=== PATIENT | male | born 1940 | race Caucasian/White ===

== ENCOUNTER 2016-05-17 23:00 | Emergency (ER) | payer MEDICARE ==
[2016-05-17] MEDS ORDERED: MORPHINE 2 MG/ML SYRINGE IVP STA (23:57)
[2016-05-18] MEDS ORDERED: MORPHINE 2 MG/ML SYRINGE ONE (00:14)
[2016-05-18] MEDS ORDERED: IOPAMIDOL-300 100 ML VIAL IVP ONE (01:18)
[2016-05-18] MEDS ORDERED: metroNIDAZOLE 250 MG TABLET PO STA (02:18)
[2016-05-18] MEDS ORDERED: CIPROFLOXACIN 250 MG TABLET PO STA (02:18)
[2016-05-18] MEDS ORDERED: metroNIDAZOLE 250 MG TABLET PO ONE (02:29)
[2016-05-18] MEDS ORDERED: CIPROFLOXACIN 250 MG TABLET PO ONE (02:29)
== END 2016-05-18 02:34 | disposition home or self-care (01) ==
DX: K57.32 Diverticulitis of large intestine without perforation or abscess without bleeding (principal); I10 Essential (primary) hypertension; E78.00 Pure hypercholesterolemia, unspecified; E10.8 Type 1 diabetes mellitus with unspecified complications; Z79.84 Long term (current) use of oral hypoglycemic drugs; Z79.82 Long term (current) use of aspirin; F17.200 Nicotine dependence, unspecified, uncomplicated
CPT/HCPCS: 36415; 74177; 80053; 81003; 83690; 85025; 96374; 99284; A9270; Q9967

== ENCOUNTER 2016-05-24 14:53 | Outpatient (CLI) | payer MEDICARE | END 2016-05-24 14:54 | disposition home or self-care (01) | DX: M17.11 Unilateral primary osteoarthritis, right knee (principal); M25.461 Effusion, right knee ==

== ENCOUNTER 2016-11-17 12:30 | Emergency (ER) | payer MEDICARE ==
--- NOTE | 2016-11-17 13:46 | ED Physician Documentation ---
History of Present Illness - Stated complaint Stated Complaint: LEFT EAR PX - Chief complaint Chief Complaint: Heent - Additonal information Additional information: hx from pt first had sore throat now ear pain and discomfort ant to ear no fever Review of Systems Constitutional: denies: Fever Ears: reports: Ear pain Throat: reports: Sore throat Cardiac: denies: Chest pain / pressure Respiratory: denies: Dyspnea PD PAST MEDICAL HISTORY - Past Medical History Cardiovascular: Hypertension, High cholesterol Endocrine/Autoimmune: Type 1 diabetes GI: Pancreatitis - Past Surgical History Past Surgical History: Yes General: Cholecystectomy, Appendectomy - Present Medications Home Medications: Ambulatory Orders Medication Instructions Recorded Confirmed Aspirin [Aspir 81] 81 mg PO DAILY 01/02/13 11/17/16 Metoprolol Succinate 50 mg PO DAILY 01/02/13 11/17/16 Terazosin [Hytrin] 10 mg PO QPM 01/02/13 11/17/16 Atorvastatin [Lipitor] 40 mg PO DAILY 05/18/16 11/17/16 Glipizide [Glipizide Xl] 5 mg PO DAILY 05/18/16 11/17/16 Hydrochlorothiazide 25 mg PO DAILY 05/18/16 11/17/16 Lisinopril 10 mg PO DAILY 05/18/16 11/17/16 metFORMIN [Glucophage] 500 mg PO TID 05/18/16 11/17/16 Amoxicillin 500 mg PO Q8H #30 capsule 11/17/16 Lidocaine HCl [Lidocaine HCl 2 drops EACHEAR Q4H PRN #1 bottle 11/17/16 Viscous] - Allergies Allergies/Adverse Reactions: Allergies Allergy/AdvReac Type Severity Reaction Status Date / Time codeine [Codeine] Allergy Intermediate Rash Verified 05/18/16 00:26 NSAIDS (Non-Steroidal AdvReac Emesis Verified 11/17/16 12:44 Anti-Inflamma - Social History Does the pt smoke?: Yes Smoking Status: Current some day smoker Does the pt drink ETOH?: Yes Does the pt have substance abuse?: No - Immunizations Immunizations are current?: Yes - POLST Patient has POLST: No PD ED PE NORMAL - Vitals Vital signs reviewed: Yes - HEENT HEENT: No: Ears normal (TM dull, cloudy fluid and bulging posterior though not anterior, small pre-auricular node, aprotid gland NT, teeth s tenderness erythema discharge, no trismus, pharynx benign) - Cardiac Cardiac: RRR - Respiratory Respiratory: No respiratory distress, Clear bilaterally Results - Vitals Vitals: Vital Signs - 24 hr 11/17/16 12:35 Temperature 37.0 C Heart Rate 76 Respiratory 14 Rate Blood Pressure 152/80 H O2 Saturation 100 Oxygen O2 Source Room air Departure - Departure Disposition: Home, Self Care Clinical Impression: Otitis media Qualifiers: Otitis media type: suppurative Laterality: left Chronicity: acute Recurrence: not specified as recurrent Spontaneous tympanic membrane rupture: without spontaneous rupture Qualified Code(s): H66.002 - Acute suppurative otitis media without spontaneous rupture of ear drum, left ear Condition: Good Instructions: ED Otitis Media Acute Adult Prescriptions: Amoxicillin 500 mg PO Q8H #30 capsule Lidocaine HCl [Lidocaine HCl Viscous] 2 drops EACHEAR Q4H PRN #1 bottle PRN Reason: ear pain Comments: Follow up with your PDM for a recheck if not better by next week Return to the ER if worse Also please follow up with your PMD to get your blood pressure rechecked - it was high today
[2016-11-17 14:03] VITALS: BP 128/69
== END 2016-11-17 14:03 | disposition home or self-care (01) ==
LOC: ED 12:30
DX: H66.002 Acute suppurative otitis media without spontaneous rupture of ear drum, left ear (principal); I10 Essential (primary) hypertension; E78.00 Pure hypercholesterolemia, unspecified; E11.9 Type 2 diabetes mellitus without complications; Z79.84 Long term (current) use of oral hypoglycemic drugs; Z79.82 Long term (current) use of aspirin; F17.200 Nicotine dependence, unspecified, uncomplicated
CPT/HCPCS: 99282; 99283

== ENCOUNTER 2017-06-13 08:55 | Outpatient (CLI) | payer MEDICARE ==
[2017-06-13 17:49] VITALS: BP 166/84
--- NOTE | 2017-06-14 08:40 | CARDIAC PROCEDURE NOTE ---
DATE OF SERVICE: 06/13/2017 Physician: BRENDA Gomez PRIMARY CARE PHYSICIAN: Dr. Vann/Dr. Mejia PROCEDURE: Cardiac treadmill stress test. 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 CARDIAC RISK FACTORS: Include age, diabetes, hypertension, and hyperlipidemia. PREVIOUS CARDIAC PROCEDURES: Include CABG in 2012. MEDICATIONS HELD: Metoprolol on 06/12 p.m. MEDICATIONS TAKEN THIS A.M.: Lisinopril. CLINICAL HISTORY: A 77-year-old male with known coronary artery disease. INITIAL RESTING VITAL SIGNS: BP 164/84, heart rate 87, height 68 inches, weight 226 pounds, BMI 34.4. PROCEDURE AND FINDINGS: Patient identity and date verified. Consent signed. The patient performed treadmill exercise using a Chago protocol and received Cardiolite at peak exercise. He went for 6 minutes 15 seconds on Chago protocol, and his last 1 minute and 2 seconds at a modified 2.7 miles per hour/14 percent grade. His entire length of exercise was 7 minutes, 17 seconds and he completed an estimated workload of 8.2 metabolic equivalents. Maximal blood pressure was 226/82 with a heart rate of 155 beats per minute or 109% of maximum predicted heart rate for age. The blood pressure response to exercise elevated in a predictable manner but was hypertensive. Once Cariolyte ciculated for one minute, exercise was stopped due to BP.The resting ECG demonstrated normal sinus rhythm with no ST or T-wave abnormalities. Maximum ST segment depression was less than 0.5 and upsloping. There were occasional PVCs and 1 couplet. FINAL IMPRESSIONS 1. Negative stress electrocardiogram for ischemia by electrocardiographic criteria. 2. Negative stress test clinically for angina. 3. One couplet and occasional monomorphic premature ventricular contractions. 4. [place] [employer] functional class 1. 5. Hypertensive blood pressure. TD: 06/14/2017 08:39 MTD
--- NOTE | 2017-06-17 13:14 | XRAY Report ---
CARDIOVASCULAR TREADMILL TEST: There was no imaging performed for this exam. Procedure notes and results available in the EMR. GABRIEL
== END 2017-06-13 08:56 | disposition home or self-care (01) ==
LOC: DI 08:55
PROVIDERS: ATTEND Family Medicine
DX: Z02.4 Encounter for examination for driving license (principal); E11.9 Type 2 diabetes mellitus without complications; I10 Essential (primary) hypertension; E78.5 Hyperlipidemia, unspecified; I25.10 Atherosclerotic heart disease of native coronary artery without angina pectoris; Z95.1 Presence of aortocoronary bypass graft
CPT/HCPCS: 93017

== ENCOUNTER 2018-07-01 16:34 | Outpatient (CLI) | payer MEDICARE | END 2018-07-01 16:35 | disposition critical access hospital (66) | LOC: EMS 16:34 | PROVIDERS: ATTEND Surgery | DX: R20.0 Anesthesia of skin (principal); R47.81 Slurred speech; R26.2 Difficulty in walking, not elsewhere classified | CPT/HCPCS: A0425; A0427 ==

== ENCOUNTER 2018-07-01 16:53 | Emergency (ER) | payer MEDICARE ==
--- NOTE | 2018-07-01 17:08 | ED Physician Documentation ---
PD HPI FOCAL NEURO - Stated complaint Stated Complaint: NUMBNESS - Chief complaint Chief Complaint: Neuro - History obtained from History obtained from: Patient, EMS - History of Present Illness Timing - onset: Today (Abruptly at 4 PM he noticed difficulty using the right hand with numbness of the right hand. There is no associated headache, symptoms in the leg or face. He has a history of NV but is not anticoagulated. His blood sugar on the way here was in the 160s.) Review of Systems Ten Systems: 10 systems reviewed and negative Constitutional: denies: Fever, Chills Ears: reports: Reviewed and negative Throat: reports: Reviewed and negative Cardiac: reports: Reviewed and negative Respiratory: reports: Reviewed and negative PD PAST MEDICAL HISTORY - Past Medical History Cardiovascular: Hypertension, High cholesterol, Coronary artery disease, NV Endocrine/Autoimmune: Type 2 diabetes GI: Pancreatitis Musculoskeletal: Osteoarthritis - Past Surgical History Past Surgical History: Yes General: Cholecystectomy, Appendectomy Cardiovascular: CABG - Present Medications Home Medications: Ambulatory Orders Medication Instructions Recorded Confirmed Aspirin [Aspir 81] 81 mg PO DAILY 01/02/13 11/17/16 RX: Metoprolol Succinate 50 mg PO DAILY 01/02/13 11/17/16 Terazosin [Hytrin] 10 mg PO QPM 01/02/13 11/17/16 Atorvastatin [Lipitor] 40 mg PO DAILY 05/18/16 11/17/16 Glipizide [Glipizide Xl] 5 mg PO DAILY 05/18/16 11/17/16 RX: Lisinopril 10 mg PO DAILY 05/18/16 11/17/16 RX: hydroCHLOROthiazide 25 mg PO DAILY 05/18/16 11/17/16 [Hydrochlorothiazide] metFORMIN [Glucophage] 500 mg PO TID 05/18/16 11/17/16 Cyclobenzaprine [Flexeril] 10 mg PO TID PRN 07/01/18 07/01/18 - Allergies Allergies/Adverse Reactions: Allergies Allergy/AdvReac Type Severity Reaction Status Date / Time codeine [Codeine] Allergy Intermediate Rash Verified 05/18/16 00:26 NSAIDS (Non-Steroidal AdvReac Emesis Verified 11/17/16 12:44 Anti-Inflamma - Social History Does the pt smoke?: Yes Smoking Status: Current some day smoker Does the pt drink ETOH?: Yes Does the pt have substance abuse?: No - Family History Family history: reports: Non contributory - Immunizations Immunizations are current?: Yes - POLST Patient has POLST: No PD ED PE NORMAL - Vitals Vital signs reviewed: Yes - General General: Alert and oriented X 3, No acute distress - HEENT HEENT: PERRL, EOMI - Neck Neck: Supple, no meningeal sign, No bony TTP - Cardiac Cardiac: RRR, No murmur - Respiratory Respiratory: No respiratory distress, Clear bilaterally - Abdomen Abdomen: Normal bowel sounds, Soft, Non tender - Back Back: No CVA TTP, No spinal TTP - Derm Derm: Normal color, Warm and dry - Extremities Extremities: No edema, No calf tenderness / cord - Neuro Neuro: Alert and oriented X 3, Normal speech NIHSS - Time Time: 17:00 - Level of Consciousness Level of consciousness: (0) Alert, Keenly responsive LOC Questions: (0) Answers both Q's correct LOC Commands: (0) Performs both correctly - Gaze Best Gaze: (0) Normal - Visual Visual: (0) No loss - Facial Palsy Facial Palsy: (0) Normal, symmetrical movement - Motor Arms (both separate) Motor Arm (right): (0) No drift Motor Arm (left): (0) No drift - Motor Legs (both separate) Motor Leg (right): (0) No drift Motor Leg (left): (0) No drift - Limb Ataxia Limb Ataxia: (0) Absent - Sensory Sensory: (1) [id number] loss (R hand) - Best Language Best Language: (0) No aphasia - Dysarthria Dysarthria: (0) Normal - Extinction and Inattention (formally neg Extinction and inattention: (0) No abnormality - Total Score/Results Total Score/Result: 1 Results - Vitals Vitals: Vital Signs - 24 hr 07/01/18 07/01/18 07/01/18 16:56 17:41 18:38 Temperature 36.3 C L Heart Rate 80 73 98 Respiratory 20 16 18 Rate Blood Pressure 173/82 H 161/66 H 187/70 H O2 Saturation 98 98 95 07/01/18 07/01/18 20:08 22:15 Temperature Heart Rate 79 81 Respiratory 18 Rate Blood Pressure 199/92 H 176/77 H O2 Saturation 100 97 Oxygen O2 Source Room air - EKG (time done) 1708 Rate: Rate (enter#) (77) Rhythm: NSR, LAE Monon: Normal Intervals: Normal NH QRS: Normal Ischemia: Non specific changes Computer interpretation: Agree with computer - Labs Labs: Laboratory Tests 07/01/18 07/01/18 07/01/18 17:11 17:11 17:11 WBC 6.5 RBC 4.40 L Hgb 12.8 L Hct 38.4 L MCV 87.3 MCH 29.2 MCHC 33.4 RDW 13.5 Plt Count 162 MPV 6.7 L Neut # (Auto) 4.1 Lymph # (Auto) 1.8 Russell # (Auto) 0.4 Eos # (Auto) 0.2 Baso # (Auto) 0.1 Absolute Nucleated RBC 0.00 Nucleated RBC % 0.1 PT 12.6 INR 1.1 Sodium 139 Potassium 3.9 Chloride 103 Carbon Dioxide 25 Anion Gap 11.0 BUN 19 Creatinine 1.0 Estimated GFR (MDRD) 72 L Glucose 229 H Calcium 9.0 Total Bilirubin 1.0 AST 33 ALT 37 Alkaline Phosphatase 59 Total Protein 6.8 Albumin 4.0 Globulin 2.8 Albumin/Globulin Ratio 1.4 Lipase 153 H - Rads (name of study) CT Head Radiology: EMP read contemporaneously (NAD) Ct Angio Neck/head Radiology: EMP read contemporaneously (Atherosclerotic plaque of the left carotid bifurcation and probable left cervical ICA with abrupt occlusion involving approximately 5 mm from the bifurcation with reconstitution of flow involving the supraclinoid left ICA. There is atherosclerotic plaque involving the right carotid bifurcation with between 50 and 60% stenosis. ) PD MEDICAL DECISION MAKING - ED course ED course: This is a 78-year-old gentleman presents with isolated right hand numbness without facial or leg findings. This is concerning for CVA but it is very mild and his NIH stroke scale was 1. His noncontrast head CT was negative and I spoke with the stroke neurologist at [facility], Dr. Sindy Kahn who recommended against TPA for such mild findings. However we discussed the case after she reviewed the angiography CTs, and they are concerning for significant vascular occlusion bilaterally and she recommended transfer down for a vascular workup and potential intervention. The patient wanted to go to [facility] and we will try to get him there through [place]. I spoke with Dr Celeste at [place], they want him to go to [facility]. The patient was agreeable after this. Of note his hand symptoms completely resolved. Departure - Departure Disposition: 02 Transfer Acute Care Hosp Clinical Impression: Carotid occlusion, bilateral, TIA (transient ischemic attack) Condition: Serious Discharge Date/Time: 07/01/18 22:20
[2018-07-01 17:16] LABS: BASOPHILS # (AUTO) 0.1 10^3/uL (0.0-0.1); BASOPHILS % (AUTO) 1.4 %; EOSINOPHILS # (AUTO) 0.2 10^3/uL (0.0-0.7); EOSINOPHILS % (AUTO) 3.1 %; HGB - HEMOGLOBIN 12.8 g/dL (14.0-18.0); LYMPHOCYTES # (AUTO) 1.8 10^3/uL (1.5-3.5); MEAN CORPUSCULAR HEMOGLOBIN 29.2 pg (27.0-31.0); MEAN CORPUSCULAR HGB CONC 33.4 g/dL (32.0-36.0); MEAN CORPUSCULAR VOLUME 87.3 fL (80.0-94.0); MEAN PLATELET VOLUME 6.7 fL (7.4-11.4); MONOCYTES # (AUTO) 0.4 10^3/uL (0.0-1.0); MONOCYTES % (AUTO) 5.7 %; NEUTROPHILS # (AUTO) 4.1 10^3/uL (1.5-6.6); NEUTROPHILS % (AUTO) 62.8 %; PLT - PLATELET COUNT 162 10^3/uL (130-450); RED CELL DISTRIBUTION WIDTH 13.5 % (12.0-15.0); WHITE BLOOD COUNT 6.5 x10^3/uL (4.8-10.8)
[2018-07-01] MEDS ORDERED: IOVERSOL 320 100 ML VIAL IVP ONE ×2 (17:16→18:53)
[2018-07-01 17:26] LABS: INR 1.1 (0.8-1.2); PT - PROTHROMBIN TIME 12.6 secs (9.9-12.6)
[2018-07-01 17:31] LABS: ALBUMIN/GLOBULIN RATIO 1.4 (1.0-2.2); TOTAL PROTEIN 6.8 g/dL (6.7-8.2)
--- NOTE | 2018-07-01 17:35 | CT Report ---
Reason: CVA sx with R arm numb Procedure Date: 07/01/2018 Accession Number: [id number] / [id number] Procedure: CT - Head W/O Stroke Protocol CPT Code: FULL RESULT: EXAM: CT HEAD EXAM DATE: 07/01/2018 05:22 PM. CLINICAL HISTORY: CVA. Right arm numbness. COMPARISON: None. TECHNIQUE: Multiaxial CT images were obtained from the foramen magnum to the vertex. Reformats: Sagittal and coronal. IV contrast: None. In accordance with CT protocol optimization, one or more of the following dose reduction techniques were utilized for this exam: automated exposure control, adjustment of mA and/or KV based on patient size, or use of iterative reconstructive technique. FINDINGS: Parenchyma: No intraparenchymal hemorrhage. No evidence of mass, midline shift, or CT findings of acute infarction. Mckeon-white differentiation is distinct. Extraaxial Spaces: Normal for age. No subdural or epidural collections identified. Ventricles: Normal in size and position. Sinuses and Orbits: Imaged paranasal sinuses, orbits, and mastoids show no significant abnormality. Bones: No evidence of fracture or calvarial defect. Other: None. IMPRESSION: Normal head CT. RADIA The critical test notification system was initiated by Dr. Emilio Varela at 05:34 PM on 07/01/2018. ADDENDUM: 07/01/18 17:36 The above critical test findings were discussed with Nathaniel Ibarra by Dr. Emilio Varela at 05:36 PM on 07/01/2018.
[2018-07-01] MEDS ORDERED: ASPIRIN CHEW 81 MG TABLET PO STA (18:07)
--- NOTE | 2018-07-01 18:07 | CT Report ---
Reason: CVA sx with R arm numb Procedure Date: 07/01/2018 Accession Number: [id number] / [id number] Procedure: CT - ANGIO NECK W/WO CPT Code: FULL RESULT: EXAM: CT ANGIOGRAM HEAD AND NECK. CT SCAN HEAD WITH CONTRAST. EXAM DATE:07/01/2018 05:28 PM. CLINICAL HISTORY:78-year-old presenting with right arm numbness. Evaluate for intracranial pathology. COMPARISON:Noncontrast CT head 07/01/2018. TECHNIQUE: Routine axial helical CTA imaging was performed from the aortic arch through the [place]. Routine axial CT imaging of the head was performed following contrast administration. Reconstructions: Routine multiplanar 3D MIP reconstructions. IV contrast: 80 cc [id number]. NASCET Criteria are used for stenosis measurements. In accordance with CT protocol optimization, one or more of the following dose reduction techniques were utilized for this exam: automated exposure control, adjustment of mA and/or KV based on patient size, or use of iterative reconstructive technique. FINDINGS: POST-CONTRAST CT HEAD: Parenchyma: No acute parenchymal hemorrhage, mass, or midline shift. The cortical mantle, deep brooks nuclei brooks white distinction remains. There is no convincing CT evidence of acute infarct. Cortical volume appears age-appropriate. No abnormal postcontrast enhancement. Extra-axial Spaces: No abnormal extra- axial fluid collection/mass seen. Cisterns are patent. No abnormal postcontrast enhancement. Ventricles: The ventricles appear age appropriate. No evidence of intraventricular hemorrhage. Orbits and Sinuses: Changes of bilateral lens replacement. Visualized paranasal sinuses, mastoid air cells, middle ear cavities appear clear. Extracranial Soft Tissues and Bones: Extracranial soft tissues are unremarkable.No fractures. Other: Vascular calcifications of the cavernous ICA segments. CT ANGIOGRAM HEAD AND NECK: Moderate atherosclerotic plaque involving the aortic arch with no significant stenosis or penetrating aortic ulcer seen. Normal three-vessel takeoff of the great vessels. There is atherosclerotic plaque involving the right subclavian artery and left subclavian artery with no significant stenosis. RIGHT: Common Carotid Artery: Patent without significant stenosis. Carotid Bulb: There is moderate atherosclerotic plaque at the bifurcation and siphon. Stenosis at the bifurcation by NASCET criteria: Between 50-60% stenosis. Internal Carotid Artery: Tortuosity of the cervical ICA with retropharyngeal course. No evidence of dissection or stenosis. There is atherosclerotic plaque involving the cavernous ICA segment with between 60 to 70% stenosis. No evidence of aneurysm along the intracranial ICA. External Carotid Artery: Atherosclerotic plaque involving the origin of the right external carotid artery with approximately 40 to 50% stenosis. Vertebral Artery: There is atherosclerotic plaque involving the origin of the right vertebral artery with no significant stenosis. The remainder of the V1 through V4 segments appear normal. No dissection. No aneurysm. Anterior Cerebral Artery: Patent without significant stenosis, aneurysm, or vascular malformation. Middle Cerebral Artery: Patent without significant stenosis, aneurysm, or vascular malformation. Posterior Cerebral Artery: Patent without significant stenosis, aneurysm, or vascular malformation. Posterior Communicating Artery: Patent. No aneurysm. LEFT: Common Carotid Artery: Patent without significant stenosis. Carotid Bulb: There is mild to moderate atherosclerotic plaque at the bifurcation and siphon. Stenosis at the bifurcation by NASCET criteria: 50% stenosis. Internal Carotid Artery: There is atherosclerotic plaque involving the origin and proximal left cervical ICA with occlusion approximately 5 mm from the bifurcation. There is reconstitution of the supraclinoid ICA. External Carotid Artery: Unremarkable. Vertebral Artery: There is atherosclerotic plaque involving the origin of the left vertebral artery with no high-grade stenosis. The V1 through V3 segments demonstrate tortuosity and atherosclerotic plaque but no significant stenosis. There is atherosclerotic plaque involving the intradural V4 segment with no high-grade stenosis. No aneurysm. Anterior Cerebral Artery: Patent without significant stenosis, aneurysm, or vascular malformation. Middle Cerebral Artery: Patent without significant stenosis, aneurysm, or vascular malformation. Posterior Cerebral Artery: Patent without significant stenosis, aneurysm, or vascular malformation. Posterior Communicating Artery: Patent. No aneurysm. CENTRAL: Anterior Communicating Artery: Patent. No aneurysm. Basilar Artery: Patent without significant stenosis. No aneurysm. DURAL VENOUS SINUSES AND MAJOR CENTRAL VEINS: Patent. OTHER: The visualized pharynx and larynx appear normal. Major salivary glands appear normal. Thyroid gland appears normal. No cervical lymphadenopathy or necrotic lymph nodes seen. Soft tissues of the neck appear normal. Minimal bullous emphysematous changes of the visualized lung apices.. No acute fracture or traumatic subluxation of the cervical spine. Multilevel degenerative changes. No suspicious osseous lesion. IMPRESSION: CT SCAN HEAD: 1. No definite acute infarct. If there is clinical concern for acute stroke or symptoms persist an MR brain could be considered to evaluate for small or subtle pathology. ASPECTS 10R/10L. 2. No acute intracranial hemorrhage, mass, hydrocephalus, or midline shift. CT ANGIOGRAM NECK: 1. There is atherosclerotic plaque involving the left carotid bifurcation and proximal left cervical ICA with abrupt occlusion approximately 5 mm from the bifurcation. There is reconstitution of flow involving the supraclinoid left ICA. 2. There is atherosclerotic plaque involving the right carotid bifurcation with between 50 to 60% stenosis. CT ANGIOGRAM HEAD: 1. As detailed above there is occlusion of the petrous and cavernous left ICA segments with reconstitution of flow of the left supraclinoid ICA. This may be due to retrograde flow through the anterior communicating artery or posterior communicating artery. 2. There is atherosclerotic plaque involving the right cavernous ICA segments with between 60 to 70% stenosis. 3. No aneurysm. RADIA The call report notification system was initiated by Dr. Manpreet Perdomo at 06:05 PM on 07/01/2018. The above call report findings were discussed with Nathaniel Ibarra by Dr. Manpreet Perdomo at 06:06 PM on 07/01/2018.
[2018-07-01 22:16] VITALS: BP 176/77
== END 2018-07-01 22:20 | disposition short-term general hospital (02) ==
LOC: EDUNIT# → ED 16:53
DX: I65.23 Occlusion and stenosis of bilateral carotid arteries (principal); I25.2 Old myocardial infarction; I10 Essential (primary) hypertension; E78.00 Pure hypercholesterolemia, unspecified; I25.10 Atherosclerotic heart disease of native coronary artery without angina pectoris; E11.9 Type 2 diabetes mellitus without complications; F17.200 Nicotine dependence, unspecified, uncomplicated; Z95.1 Presence of aortocoronary bypass graft; Z79.82 Long term (current) use of aspirin; Z79.84 Long term (current) use of oral hypoglycemic drugs; Z79.899 Other long term (current) drug therapy
CPT/HCPCS: 36415; 70496; 70498; 80053; 83690; 85025; 85610; 93005; 99284; 99285; A9270; Q9967; 70450

== ENCOUNTER 2021-02-01 14:07 | Outpatient (CLI) | payer MEDICARE ==
--- NOTE | 2021-02-01 14:54 | XRAY Report ---
PROCEDURE: Wrist 3 View LT INDICATIONS: Left wrist pain. TECHNIQUE: 3 views of the wrist were acquired. COMPARISON: None available. FINDINGS: BONES: No acute, displaced fracture or dislocation. The lateral alignment of the carpometacarpal gopi culations are not well-seen on the AP view. SOFT TISSUES: No focal abnormality. IMPRESSION: 1.No acute osseous abnormality. Reviewed by: Stan Duke MD on 02/01/2021 2:53 PM PDT Approved by: Stan Duke MD on 02/01/2021 2:53 PM PDT Station ID: [id number]
--- NOTE | 2021-02-01 15:01 | XRAY Report ---
PROCEDURE: Elbow 3 View LT INDICATIONS: L ELBOW EFFUSION TECHNIQUE: 3 views of the elbow were acquired. COMPARISON: None. FINDINGS: BONES/JOINTS: No acute, displaced fracture or dislocation. No substantial joint effusion. Productive changes about the coronoid process, radial head, and medial epicondyle. SOFT TISSUES: No focal abnormality. IMPRESSION: 1.No acute osseous abnormality of the elbow. Reviewed by: Stan Duke MD on 02/01/2021 2:59 PM PDT Approved by: Stan Duke MD on 02/01/2021 2:59 PM PDT Station ID: [id number]
== END 2021-02-01 14:08 | disposition home or self-care (01) ==
LOC: DI.N 14:07
PROVIDERS: ATTEND Family Medicine
DX: M25.532 Pain in left wrist (principal); M25.432 Effusion, left wrist; M25.422 Effusion, left elbow

== ENCOUNTER 2022-08-14 08:38 | Outpatient (CLI) | payer MEDICARE, MEDICAID ==
[2022-08-14 09:18] LABS: BASOPHILS # (AUTO) 0.1 10^3/uL (0.0-0.1); BASOPHILS % (AUTO) 0.8 %; EOSINOPHILS # (AUTO) 0.2 10^3/uL (0.0-0.7); EOSINOPHILS % (AUTO) 2.6 %; HGB - HEMOGLOBIN 12.9 g/dL (14.0-18.0); LYMPHOCYTES # (AUTO) 1.9 10^3/uL (1.5-3.5); LYMPHOCYTES % (AUTO) 29.8 %; MEAN CORPUSCULAR HGB CONC 32.3 g/dL (32.0-36.0); MEAN CORPUSCULAR VOLUME 89.9 fL (80.0-94.0); MEAN PLATELET VOLUME 8.8 fL (7.4-11.4); MONOCYTES # (AUTO) 0.4 10^3/uL (0.0-1.0); MONOCYTES % (AUTO) 6.5 %; NEUTROPHILS # (AUTO) 3.9 10^3/uL (1.5-6.6); NEUTROPHILS % (AUTO) 59.8 %; PLT - PLATELET COUNT 102 10^3/uL (130-450); RED BLOOD COUNT 4.45 10^6/uL (4.70-6.10); WHITE BLOOD COUNT 6.5 x10^3/uL (4.8-10.8)
[2022-08-14 09:48] LABS: ALBUMIN 4.1 g/dL (3.2-5.5); ALBUMIN/GLOBULIN RATIO 1.5 (1.0-2.2); ALKALINE PHOSPHATASE 59 IU/L (42-121); ALT ALANINE AMINOTRANSFERASE 39 IU/L (10-60); AST ASPARTATE AMINOTRANSFERASE 31 IU/L (10-42); BUN - BLOOD UREA NITROGEN 17 mg/dL (6-20); CALCIUM 9.1 mg/dL (8.5-10.3); CARBON DIOXIDE - CO2 28 mmol/L (21-32); CHLORIDE 104 mmol/L (101-111); CHOL/HDL RATIO 2.7 (<5.0); CHOLESTEROL 104 mg/dL; CREATININE 0.9 mg/dL (0.6-1.2); GFR - MDRD 81 (>89); GLUCOSE 121 mg/dL (70-100); HDL CHOLESTEROL 38 mg/dL; LDL CHOLESTEROL,CALCULATED 39 mg/dL; MAGNESIUM 1.9 mg/dL (1.7-2.8); POTASSIUM 4.7 mmol/L (3.5-5.0); SODIUM 138 mmol/L (135-145); TOTAL PROTEIN 6.9 g/dL (6.7-8.2); TRIGLYCERIDES 136 mg/dL; VLDL CHOLESTEROL 27 mg/dL
[2022-08-14 09:59] LABS: THYROID STIMULATING HORMONE 4.05 uIU/mL (0.34-5.60)
[2022-08-14 14:38] LABS: ESTIMATED AVERAGE GLUCOSE 146 mg/dL (70-100); HEMOGLOBIN A1c% 6.7 % (4.27-6.07)
== END 2022-08-14 08:39 | disposition home or self-care (01) ==
LOC: LAB 08:38
PROVIDERS: ATTEND Physician Assistant
DX: E11.9 Type 2 diabetes mellitus without complications (principal); R25.2 Cramp and spasm
CPT/HCPCS: 36415; 80053; 80061; 83036; 83721; 83735; 84443; 85025

== ENCOUNTER 2022-08-21 13:04 | Outpatient (CLI) | payer MEDICARE, MEDICAID ==
--- NOTE | 2022-08-21 15:15 | XRAY Report ---
PROCEDURE: Chest 2 View X-Ray INDICATIONS: DYSPNEA TECHNIQUE: 2 views of the chest were acquired. COMPARISON: Chest x-ray 2 views, 01/02/2013. FINDINGS: Surgical changes and devices: Sternotomy. CABG. Lungs and pleura: No pleural effusions or pneumothorax. Lungs are clear. Mediastinum: Mediastinal contours appear normal. Heart size is normal. Bones and chest wall: No suspicious bony lesions. Overlying soft tissues appear unremarkable. IMPRESSION: No acute cardiopulmonary disease. Reviewed by: Christian Dumont MD on 08/21/2022 3:14 PM PDT Approved by: Christian Dumont MD on 08/21/2022 3:14 PM PDT Station ID: [id number]
== END 2022-08-21 13:05 | disposition home or self-care (01) ==
LOC: DI 13:04
PROVIDERS: ATTEND Nurse Practitioner Family
DX: R06.00 Dyspnea, unspecified (principal); F17.210 Nicotine dependence, cigarettes, uncomplicated

== ENCOUNTER 2022-11-13 07:48 | Outpatient (CLI) | payer MEDICARE, MEDICAID ==
[2022-11-13 08:03] LABS: BASOPHILS # (AUTO) 0.1 10^3/uL (0.0-0.1); EOSINOPHILS # (AUTO) 0.2 10^3/uL (0.0-0.7); EOSINOPHILS % (AUTO) 3.3 %; HCT - HEMATOCRIT 42.2 % (42.0-52.0); HGB - HEMOGLOBIN 13.5 g/dL (14.0-18.0); LYMPHOCYTES # (AUTO) 2.1 10^3/uL (1.5-3.5); LYMPHOCYTES % (AUTO) 33.9 %; MEAN CORPUSCULAR HEMOGLOBIN 29.2 pg (27.0-31.0); MEAN CORPUSCULAR VOLUME 91.1 fL (80.0-94.0); MEAN PLATELET VOLUME 8.6 fL (7.4-11.4); MONOCYTES # (AUTO) 0.4 10^3/uL (0.0-1.0); MONOCYTES % (AUTO) 7.1 %; NEUTROPHILS # (AUTO) 3.3 10^3/uL (1.5-6.6); NEUTROPHILS % (AUTO) 54.2 %; PLT - PLATELET COUNT 113 10^3/uL (130-450); RED BLOOD COUNT 4.63 10^6/uL (4.70-6.10); WHITE BLOOD COUNT 6.1 x10^3/uL (4.8-10.8)
[2022-11-13 08:28] LABS: ALBUMIN 4.3 g/dL (3.2-5.5); ALBUMIN/GLOBULIN RATIO 1.3 (1.0-2.2); BILIRUBIN,TOTAL 0.7 mg/dL (0.2-1.0); CALCIUM 8.9 mg/dL (8.5-10.3); CREATININE 1.1 mg/dL (0.6-1.2); POTASSIUM 3.9 mmol/L (3.5-5.0); TOTAL PROTEIN 7.5 g/dL (6.7-8.2)
[2022-11-13 08:38] LABS: FERRITIN 33.6 ng/mL (23.9-336.2)
[2022-11-13 11:36] LABS: ESTIMATED AVERAGE GLUCOSE 157 mg/dL (70-100); HEMOGLOBIN A1c% 7.1 % (4.27-6.07)
[2022-11-15 15:27] LABS: PATHOLOGIST SLIDE COMMENTS SEE SEPARATE REPORT
== END 2022-11-13 07:49 | disposition home or self-care (01) ==
LOC: LAB 07:48
PROVIDERS: ATTEND Physician Assistant
DX: E11.9 Type 2 diabetes mellitus without complications (principal); D64.9 Anemia, unspecified; R79.1 Abnormal coagulation profile
CPT/HCPCS: 36415; 80053; 82607; 82728; 82746; 83036; 83540; 84466; 85025

== ENCOUNTER 2022-12-25 12:40 | Outpatient (CLI) | payer MEDICARE, MEDICAID | END 2022-12-25 12:41 | disposition home or self-care (01) | LOC: DI 12:40 | PROVIDERS: ATTEND Internal Medicine Cardiovascular Disease | DX: I25.709 Atherosclerosis of coronary artery bypass graft(s), unspecified, with unspecified angina pectoris (principal); R29.898 Other symptoms and signs involving the musculoskeletal system; I08.1 Rheumatic disorders of both mitral and tricuspid valves | CPT/HCPCS: 93306 ==

== ENCOUNTER 2023-02-07 08:02 | Outpatient (CLI) | payer MEDICARE, MEDICAID ==
[2023-02-07 08:55] LABS: CALCIUM 9.4 mg/dL (8.5-10.3); POTASSIUM 4.2 mmol/L (3.5-4.5)
[2023-02-07 15:37] LABS: ESTIMATED AVERAGE GLUCOSE 151 mg/dL (70-100); HEMOGLOBIN A1c% 6.9 % (4.27-6.07)
== END 2023-02-07 08:03 | disposition home or self-care (01) ==
LOC: LAB 08:02
PROVIDERS: ATTEND Physician Assistant
DX: E11.9 Type 2 diabetes mellitus without complications (principal); I50.20 Unspecified systolic (congestive) heart failure; N40.1 Benign prostatic hyperplasia with lower urinary tract symptoms; R35.0 Frequency of micturition
CPT/HCPCS: 36415; 80048; 83036; 83880; 84153